=== PATIENT | male | born 1970 | race African-American/Black ===

== ENCOUNTER 2016-12-26 16:33 | Inpatient (IN) | payer BC ==
[~2016-12-26] VITALS: Ht 185.4 cm; Wt 112.0 kg
[2016-12-26] MEDS ORDERED: ONDANSETRON 4 MG INJ IV STA ×2 (16:39→18:19)
[2016-12-26] MEDS ORDERED: SOD CHLORIDE 0.9% 1,000 ML IV STA ×2 (16:39→18:28)
--- NOTE | 2016-12-26 17:13 | RADRPT ---
PROCEDURE: XR Chest. CLINICAL INDICATION: Syncope TECHNIQUE: Single AP view of the chest was obtained. COMPARISON: None FINDINGS: There is mild elevation of the right hemidiaphragm. There is moderate cardiomegaly with prominence of interstitial markings, likely due to congestive ch anges. There is no significant pleural effusion or pneumothorax. Osseous and soft tissue structures are unremarkable. IMPRESSION: Moderate cardiomegaly with prominence of interstitial markings, likely due to mild congestive change s. RPTAT: EE Physician Cat Date Time Electronically viewed and signed by Mark Nieto Physician on 12/26/2016 17:13 /
[2016-12-26] MEDS ORDERED: NITROGLYCERIN 2% 1 GM OINT PKT TD STA (18:19)
[2016-12-26] MEDS ORDERED: ASPIRIN 325 MG TAB PO STA (18:19)
[2016-12-26] MEDS ORDERED: morphine 4 MG/ML VIAL IV STA (18:19)
[2016-12-26] MEDS ORDERED: SOD CHLORIDE 0.9% 100 ML ONE (19:22)
[2016-12-26] MEDS ORDERED: IODIXANOL LOCM 100 ML BTL ONE (19:22)
--- NOTE | 2016-12-26 20:27 | ERD ---
ER Documentation Chief Complaint Chief Complaint FEELING ANXIETY AND PALPITATION AFTER DRINKING ENERGY DRINK . SYNCOPE IN ER HPI This is a 46-year-old male who presents via EMS. The patient states that he felt palpitations and anxiety after drinking an energy drink earlier in the day. However, when he was with EMS at the door he had a syncopal episode. The patient was quickly arousable and had no witnessed seizure activity. He denied any prodrome of chest pain or shortness of breath. He does describe some palpitations. He states that he did take an energy drink earlier today. He denies any drugs or alcohol. ROS All systems reviewed and are negative except as per history of present illness. Medications Home Meds No Active Prescriptions or Reported Meds Allergies Allergies: Coded Allergies: No Known Allergy (Unverified , 12/26/16) PMhx/Soc Medical and Surgical Hx: pt denies Surgical Hx Hx Respiratory Disorders: Yes (asthma) Hx Alcohol Use: No Hx Substance Use: No Hx Tobacco Use: No Smoking Status: Never smoker Physical Exam Vitals Vital Signs Date Time Temp Pulse Resp B/P Pulse Ox O2 Delivery O2 Flow Rate FiO2 12/26/16 19:12 74 19 128/57 99 Nasal Cannula 2.0 12/26/16 17:21 98.5 78 21 135/78 98 Physical Exam General: Anxious but no significant distress Head: Normocephalic, atraumatic. Eyes: Pupils equally reactive, EOM intact ENT: Moist mucous membranes Neck: Supple, no lymphadenopathy Respiratory: Lungs clear bilaterally, no distress Cardiovascular: RRR, no murmurs, rubs, or gallops Abdominal: Soft, non-tender, non-distended, no peritoneal signs : Deferred MSK: No edema, no unilateral swelling, 5/5 strength Neurologic: Alert and oriented, moving all extremities, normal speech, no focal weakness, no cerebellar signs Skin: No rash Psych: Normal mood Result Diagram: 12/26/16 1640 12/26/16 1640 Results 24 hrs Laboratory Tests Test 12/26/16 16:40 White Blood Count 13.410^3/ul Red Blood Count 4.9010^6/ul Hemoglobin 15.3g/dl Hematocrit 43.7% Mean Corpuscular Volume 89.2fl Mean Corpuscular Hemoglobin 31.2pg Mean Corpuscular Hemoglobin Concent 35.0g/dl Red Cell Distribution Width 12.3% Platelet Count 09430^3/UL Mean Platelet Volume 11.5fl Neutrophils % % Segmented Neutrophils % (Manual) 13% Lymphocytes % % Lymphocytes % (Manual) 77% Monocytes % % Monocytes % (Manual) 8% Eosinophils % (Manual) 1% Plasma Cells % (manual) 1% Nucleated Red Blood Cells % 0.0/100WBC Neutrophils # 10^3/ul Absolute Lymphocytes (Manual) 10.310^3/ul Lymphocytes # 10^3/ul Monocytes # 10^3/ul Absolute Monocytes (Manual) 1.010^3/ul Plasma Cells # (manual) 0.110^3/ul Giant Platelets 1% Platelet Morphology Comment @See below Polychromasia 1+ Sodium Level 143mmol/L Potassium Level 3.3mmol/L Chloride Level 108mmol/L Carbon Dioxide Level 23mmol/L Anion Gap 15 Blood Urea Nitrogen 11mg/dl Creatinine 1.30mg/dl Glucose Level 105mg/dl Calcium Level 9.3mg/dl Troponin I < 0.012ng/ml Current Medications Medications (Trade) Dose Ordered Sig/Stacy Route PRN Reason Start Time Stop Time Status Last Admin Dose Admin Sodium Chloride (NS) 1,000 ml @ 1,000 mls/hr Q1H STAT IV 12/26/16 16:39 12/26/16 17:38 DC 12/26/16 17:16 Ondansetron HCl (Zofran Inj) 4 mg ONCE STAT IV 12/26/16 16:39 12/26/16 16:40 DC 12/26/16 17:16 Aspirin (Aspirin) 325 mg ONCE STAT PO 12/26/16 18:19 12/26/16 18:20 DC Nitroglycerin (Nitroglycerin 2% Oint) 1 inch ONCE STAT TD 12/26/16 18:19 12/26/16 18:20 DC 12/26/16 19:00 Morphine Sulfate (morphine) 4 mg ONCE STAT IV 12/26/16 18:19 12/26/16 18:20 DC 12/26/16 18:59 Ondansetron HCl 4 mg 4 mg ONCE STAT IV 12/26/16 18:19 12/26/16 18:20 DC 12/26/16 18:59 Sodium Chloride (NS) 1,000 ml @ 1,000 mls/hr Q1H STAT IV 12/26/16 18:28 12/26/16 19:27 DC 12/26/16 18:56 IV Flush 10 ml 10 ml STK-MED ONCE .ROUTE 12/26/16 19:22 12/26/16 19:23 DC Sodium Chloride (NS) 100 ml @ ud STK-MED ONCE .ROUTE 12/26/16 19:22 12/26/16 19:23 DC Iodixanol (Visipaque Locm) 100 ml STK-MED ONCE .ROUTE 12/26/16 19:22 12/26/16 19:23 DC Procedures/MDM EKG, MONITORS, & DIAGNOSTIC IMAGING: EKG #1 EKG: I reviewed and interpreted a 12-lead EKG. Rhythm: Normal sinus rhythm Ectopy: None Intervals: No abnormalities ST segments: No elevations or depressions T waves: Isolated T-wave inversion in lead III EKG #2 EKG: I reviewed and interpreted a 12-lead EKG. Rhythm: Normal sinus rhythm Ectopy: None Intervals: No abnormalities ST segments: No elevations or depressions T waves: Isolated T-wave inversion in lead III #3 EKG: I reviewed and interpreted a 12-lead EKG. Rhythm: Normal sinus rhythm Ectopy: None Intervals: No abnormalities ST segments: No elevations or depressions T waves: Isolated T-wave inversion in lead III #4 EKG: I reviewed and interpreted a 12-lead EKG. Rhythm: Normal sinus rhythm Ectopy: None Intervals: No abnormalities ST segments: No elevations or depressions T waves: Isolated T-wave inversion in lead III Chest x-ray: I reviewed and interpreted a 1 view of the chest Mediastinum: No enlargement Cardiac silhouette: No cardiomegaly Airspace: Clear lung thomas bilaterally without evidence of pneumothorax Bones: No evidence of fracture CTA chest: IMPRESSION: 1. No thoracic aortic dissection. No aneurysmal dilatation. 2. No major pulmonary emboli. 3. Bibasilar atelectasis. 4. Borderline cardiomegaly. LAB INTERPRETATION: Negative troponin, nonspecific leukocytosis MEDICAL DECISION MAKING: On arrival the patient had a syncopal episode. He had a rapid return to baseline and had no witnessed seizure activity. The patient is a very poor historian and the only thing that he can tell me is that he had an energy drink earlier today. The patient did develop some chest pain throughout his ER course but his repeat EKG was unchanged. It should be noted that the patient's initial EKG was read by the machine as "acute CA ". However, his EKG did not actually meet STEMI criteria. There were no ST segment changes, no reciprocal changes. I had Dr. Garcia, evaluate the EKG and review the EKG and she agrees that this is not consistent with acute ST elevation myocardial infarction. His presentation seem to be consistent with sympathomimetic response likely secondary to caffeine drink. However given his persistence of symptoms and inclusion of chest pain there is some concern for possible cardiac etiology and the fact that the energy drink may be a red lay ER COURSE: Because the patient did have an episode of syncope I believe a CT of the chest to rule out dissection would be appropriate. He did not describe any pleuritic pain and has no risk factors for pulmonary embolism. Therefore, low clinical concern for PE. The patient does seem very anxious which is contributing to his symptoms. Aspirin was held until negative CT, the patient was given nitroglycerin and morphine with complete resolution of symptoms. Because of the patient's complex presentation as well as persistent symptoms I believe inpatient hospitalization to rule out ACS is most appropriate. I kept the patient and/or family informed of laboratory and diagnostic imaging results throughout the emergency room course. DISPOSITION PLAN: Telemetry admission for management of chest pain to rule out acute coronary syndrome, serial enzymes, risk stratification and consideration of provocative testing CONSULTATION: Accepting care team and consultations: I discussed the current laboratory data, diagnostic imaging and emergency care provided. Admitting team: Dr. hatch Admitting team indication: Insurance directed Departure Diagnosis: Primary Impression: Acute renal insufficiency Additional Impression: Chest pain Chest pain type: unspecified Qualified Code: R07.9 - Chest pain, unspecified type Condition: EMILY Nowak MD Dec 26, 2016 20:27
--- NOTE | 2016-12-26 20:50 | RADRPT ---
PROCEDURE: CT Thoracic Angiogram. CLINICAL INDICATION: Chest pain. Evaluate for aortic dissection. TECHNIQUE: CT thoracic aortic angiogram and a CT scan of the chest without and with contrast was p erformed on a multi-detector high-resolution CT scanner. The patient was scanned following the unco mplicated intravenous administration of 100 cc of Visipaque 320 intravenous contrast. 2-D coronal r eformatted images and 3-D MIP images were obtained from the axial source images. The total exam CTDI equals 7.42, and 19.97 and the total exam DLP equals 760.59 mGy-cm. One or more of the following dose reduction techniques were used: Automated exposure control. Adjustment of the mA and/or kV according to patient size. Use of iterative reconstruction technique. COMPARISON: None available FINDINGS: CT thoracic aortic angiogram: The thoracic aorta is well visualized and is normal. No aortic aneurysm is seen. No aortic dissect ion, transection, aneurysm, pseudoaneurysm, or intramural hematoma is identified. No abnormality of the aortic root is identified. CT chest: Posterior dependent atelectasis is noted in bilateral lung bases. No focal opacification, effusion, pneumothorax, edema, or nodules are seen. Minimal scarring only is seen in the lung bases bilateral ly. There is no acute infiltrate. The mediastinum is unremarkable without evidence for mass or lym phadenopathy. The vascular structures of the mediastinum are normal in course and caliber. The hear t size is borderline enlarged without evidence for pericardial thickening or effusion. The axillary regions, subpectoral regions, and supraclavicular regions are all unremarkable. Imagin g obtained through the upper abdomen reveals no acute abnormality. There is fatty infiltration. The surrounding osseous structures unremarkable. No osteolytic or osteoblastic lesion is detected.. IMPRESSION: 1. No thoracic aortic dissection. No aneurysmal dilatation. 2. No major pulmonary emboli. 3. Bibasilar atelectasis. 4. Borderline cardiomegaly. RPTAT: HHO .Todd Ricardo MD, Date Time Electronically viewed and signed by .Todd Ricardo MD, on 12/26/2016 20:49 .O/
[2016-12-26] MEDS ORDERED: ONDANSETRON 4 MG INJ IV PRN (21:00)
[2016-12-26] MEDS ORDERED: ACETAMINOPHEN 325 MG TAB PO PRN (21:00)
[2016-12-27] MEDS ORDERED: NITROGLYCERIN (SL) 0.4 MG TAB SL PRN
[2016-12-27] MEDS ORDERED: ACETAMINOPHEN 325 MG TAB PO PRN
[2016-12-27] MEDS ORDERED: LORAZEPAM 0.5 MG TAB PO PRN
[2016-12-27] MEDS ORDERED: morphine 2 MG INJ IV PRN
[2016-12-27] MEDS ORDERED: ONDANSETRON 4 MG INJ IV PRN
[2016-12-27] MEDS ORDERED: NACL 0.9% 3 ML SYG IV SCH
[2016-12-27] MEDS: SOD CHLORIDE 0.9% 1,000 ML IV SCH ×5 (00:35→17:02)
[2016-12-27] MEDS: ASPIRIN 81 MG TAB PO SCH (08:25)
[2016-12-27] MEDS: HEPARIN 5,000 UNIT/0.5 ML VIAL SC SCH ×2 (08:29→20:25)
--- NOTE | 2016-12-27 11:32 | PN ---
Date/Time of Note Date/Time of Note DATE: 12/27/16 TIME: 11:31 Assessment/Plan VTE Prophylaxis VTE Prophylaxis Intervention: ambulation Assessment/Plan Chief Complaint/Hosp Course Patient is a 46-year-old male who presents to [facility] emergency department for palpitations. Assessment and plan Palpitations, secondary to caffeine plus energy drink plus allergy medication likely containing pseudoephedrine Elevated CK, likely secondary to palpitations Leukocytosis, mild, resolving HPI, resolved Hypokalemia, resolved -Patient likely had too many stimulants, leading to arrhythmia, patient vitals within normal limits at this time, mild bradycardia however asymptomatic -We will increase IV fluids, and monitor CK level for tomorrow, given possible renal damage, -We will consider cardiac consultation if arrhythmia continues -Monitor for now, DC tomorrow if stable Problems: Subjective 24 Hr Interval Summary Free Text/Dictation no acute issues, feels okay, better than before Exam/Review of Systems Vital Signs Vitals Vital Signs Date Time Temp Pulse Resp B/P Pulse Ox O2 Delivery O2 Flow Rate FiO2 12/27/16 06:30 59 18 117/76 98 Room Air 12/27/16 04:30 2.0 12/26/16 17:21 98.5 Exam Physical exam General: Patient is laying in bed and answers questions appropriately Mentation: Patient is alert and oriented 4, Head: Normocephalic atraumatic Eyes: EOMI, pupils reactive to light Neck: Supple, nontender, midline Respiratory: Clear to auscultation bilaterally Cardiovascular: regular rate, no obvious murmurs Gastrointestinal: non-tender to palpation, bowel sounds heard. Neurological: Moves all extremities spontaneously Skin: No new skin lesions Results Result Diagram: 12/27/1630 12/27/1630 Results 24 hrs Laboratory Tests Test 12/26/16 16:40 12/27/16 00:16 12/27/16 03:05 12/27/16 05:30 White Blood Count 13.4 H 11.1 H Red Blood Count 4.90 4.19 L Hemoglobin 15.3 13.1 L Hematocrit 43.7 37.9 L Mean Corpuscular Volume 89.2 90.5 Mean Corpuscular Hemoglobin 31.2 31.3 Mean Corpuscular Hemoglobin Concent 35.0 34.6 Red Cell Distribution Width 12.3 12.5 Platelet Count 178 150 Mean Platelet Volume 11.5 H 11.5 H Neutrophils % 64.3 Segmented Neutrophils % (Manual) 13 L Lymphocytes % 25.6 Lymphocytes % (Manual) 77 H Monocytes % 9.0 Monocytes % (Manual) 8 Eosinophils % (Manual) 1 Plasma Cells % (manual) 1 Nucleated Red Blood Cells % 0.0 0.0 Neutrophils # 7.1 Absolute Lymphocytes (Manual) 10.3 H Lymphocytes # 2.8 Monocytes # 1.0 H Absolute Monocytes (Manual) 1.0 H Plasma Cells # (manual) 0.1 H Giant Platelets 1 H Platelet Morphology Comment @See below Polychromasia 1+ Sodium Level 143 142 Potassium Level 3.3 L 4.2 Chloride Level 108 108 Carbon Dioxide Level 23 28 Anion Gap 15 10 # Blood Urea Nitrogen 11 12 Creatinine 1.30 H 1.18 Glucose Level 105 96 Calcium Level 9.3 9.1 Troponin I < 0.012 < 0.012 < 0.012 Creatine Kinase 506 H 553 H Creatine Kinase Index 0.5 0.4 Creatinine Kinase MB (Mass) 2.50 H 2.34 Urine Opiates Screen Positive Urine Barbiturates Negative Urine Amphetamines Screen Negative Urine Benzodiazepines Screen Negative Urine Cocaine Screen Negative Urine Cannabinoids Positive Eosinophils % 0.6 Basophils % 0.2 Eosinophils # 0.1 Basophils # 0.0 Nucleated Red Blood Cells # 0.0 Hemoglobin A1c 5.7 Magnesium Level 2.0 Total Bilirubin 0.6 Direct Bilirubin 0.00 Indirect Bilirubin 0.6 Aspartate Amino Transf (AST/SGOT) 37 Alanine Aminotransferase (ALT/SGPT) 66 Alkaline Phosphatase 46 Total Protein 6.8 Albumin 3.4 Globulin 3.40 H Albumin/Globulin Ratio 1.00 Triglycerides Level 85 Cholesterol Level 173 LDL Cholesterol, Calculated 118 HDL Cholesterol 38 Cholesterol/HDL Ratio 4.5 Thyroid Stimulating Hormone (TSH) 0.682 Medications Medications Current Medications Sodium Chloride (NS) 1,000 ml @ 100 mls/hr Q10H IV Last administered on t 08:57; Admin Dose 100 MLS/HR; Start 12/26/16 at 23:37; Stop 12/27/16 at 22:00 Lorazepam (Ativan) 0.5 mg Q8H PRN PO ANXIETY; Start 12/27/16 at 00:00 Ondansetron HCl (Zofran Inj) 4 mg Q6H PRN IV NAUSEA AND/OR VOMITING; Start at 00:00 Aspirin (Aspirin) 81 mg DAILY PO Last administered on 12/27/16 08:25; Admin Dose 81 MG; Start 12/27/16 at 09:00 Nitroglycerin (Nitroglycerin (Sl Tab) 0.4 Mg) 1 tab Q5M PRN SL CHEST PAIN; Start 12/27/16 at 00:00 Acetaminophen (Tylenol Tab) 650 mg Q6H PRN PO PAIN LEVEL 1-3 OR FEVER; Start 12/27/16 at 00:00 Morphine Sulfate (morphine) 2 mg Q4H PRN IV PAIN LEVEL 7-10 Last administered on 12/27/16 03:52; Admin Dose 2 MG; Start 12/27/16 at 00:00 Heparin Sodium (Porcine) 5000 unit 5,000 unit Q12 SC Last administered on 12/27 08:29; Admin Dose 5,000 UNIT; Start 12/27/16 at 09:00 Sodium Chloride (NS) 1,000 ml @ 150 mls/hr Q6H40M IV ; Start 12/27/16 at 10:00 DESI NIELSEN Dec 27, 2016 11:32
[2016-12-27 12:13] VITALS: PULSE 65
--- NOTE | 2016-12-27 12:36 | HP ---
Date/Time of Note Date/Time of Note DATE: 12/27/16 TIME: 12:23 Assessment/Plan Assessment/Plan Assessment/Plan 1. Anxiety and palpitations, 2/2 energy drink, coffee, allergy med - monitor in tele unit 2. Chest pain -trend trop -2D-echo -supplemental oxygen, aspirin, as needed nitro and morphine -lasix given CXR finding 3. Leukocytosis, reactive vs URI given symptom -respiratory culture -check Influenza -no Abx for now 4. SAVANNA: resolved HPI/ROS Admit Date/Time Admit Date/Time Hx of Present Illness This is a 46-year-old male with hx of asthma who presented to ER c/o anxiety and palpitations. He said he had his usual coffee, then an allergy med this morning for nasal congestion. Few hours later, he drank an energy drink for first time. An hour or so later, he became anxious and his heart was beating fast. Per EMS, pt has a brief syncopal episode when they arrived at his house. Patient denied simialr symptoms in the past. Once in ER, he c/o non-radiating left sided chest pain described as sharp. On further questioning, he reported cough productive of greenish sputum for last few days associated with nasal congestion. denied fever or chills. CXR showed Moderate cardiomegaly with prominence of interstitial markings, likely due to mild congestive changes. CTPA with no acute findings. EKG with no ST-T wave abnormalities and first trop is neg. Lab showed WBC of 13,000, K+ 3.3. PMH/Family/Social Social History Smoking Status: Never smoker Exam/Review of Systems Vital Signs Vitals Vital Signs Date Time Temp Pulse Resp B/P Pulse Ox O2 Delivery O2 Flow Rate FiO2 12/27/16 12:13 65 13 105/55 97 Nasal Cannula 2.0 12/26/16 17:21 98.5 Labs Result Diagram: 12/27/16 0530 12/27/16 0530 Medications Medications Current Medications Sodium Chloride (NS) 1,000 ml @ 100 mls/hr Q10H IV Last administered on t 08:57; Admin Dose 100 MLS/HR; Start 12/26/16 at 23:37; Stop 12/27/16 at 22:00 Lorazepam (Ativan) 0.5 mg Q8H PRN PO ANXIETY; Start 12/27/16 at 00:00 Ondansetron HCl (Zofran Inj) 4 mg Q6H PRN IV NAUSEA AND/OR VOMITING; Start at 00:00 Aspirin (Aspirin) 81 mg DAILY PO Last administered on 12/27/16 08:25; Admin Dose 81 MG; Start 12/27/16 at 09:00 Nitroglycerin (Nitroglycerin (Sl Tab) 0.4 Mg) 1 tab Q5M PRN SL CHEST PAIN; Start 12/27/16 at 00:00 Acetaminophen (Tylenol Tab) 650 mg Q6H PRN PO PAIN LEVEL 1-3 OR FEVER; Start 12/27/16 at 00:00 Morphine Sulfate (morphine) 2 mg Q4H PRN IV PAIN LEVEL 7-10 Last administered on 12/27/16 03:52; Admin Dose 2 MG; Start 12/27/16 at 00:00 Heparin Sodium (Porcine) 5000 unit 5,000 unit Q12 SC Last administered on 12/27 08:29; Admin Dose 5,000 UNIT; Start 12/27/16 at 09:00 Sodium Chloride (NS) 1,000 ml @ 150 mls/hr Q6H40M IV Last administered on 10:00; Admin Dose 150 MLS/HR; Start 12/27/16 at 10:00 BRETT REAGAN MD Dec 27, 2016 12:35
[2016-12-27 13:32] VITALS: Ht 185.4 cm; Wt 112.0 kg
[2016-12-27] MEDS ORDERED: ALBU8.5H3 INH (14:56)
[2016-12-27] MEDS ORDERED: LEVO2.5S7 PO (14:57)
[2016-12-27] MEDS ORDERED: AZEL205. NASAL (15:01)
[2016-12-27 15:11] VITALS: BP 131/70; RESP 18
[2016-12-27 20:03] VITALS: BP 127/59; RESP 18
[2016-12-27] MEDS: ALBUTEROL/IPRATROPIUM (NEB) 3 ML AMP HHN PRN (20:13)
[2016-12-28] MEDS: SOD CHLORIDE 0.9% 1,000 ML IV SCH ×4 (00:07→14:42)
[2016-12-28 01:57] VITALS: BP 126/76; RESP 20
[2016-12-28] MEDS: ALBUTEROL/IPRATROPIUM (NEB) 3 ML AMP HHN PRN (05:32)
[2016-12-28 07:38] VITALS: BP 134/78; RESP 20
[2016-12-28] MEDS: ASPIRIN 81 MG TAB PO SCH (09:31)
[2016-12-28] MEDS: HEPARIN 5,000 UNIT/0.5 ML VIAL SC SCH (09:32)
--- NOTE | 2016-12-28 11:54 | PN ---
Date/Time of Note Date/Time of Note DATE: 12/28/16 TIME: 11:43 Assessment/Plan VTE Prophylaxis VTE Prophylaxis Intervention: SCD's Lines/Catheters IV Catheter Type (from Nrs): Peripheral IV Urinary Cath still in place: No Assessment/Plan Assessment/Plan 1. Palpitations, secondary to caffeine plus energy drink plus allergy medication likely containing pseudoephedrine - Improved and no longer experiencing palpitations - HR controlled - No further episodes of chest pain 2. Elevated CK, likely secondary to palpitations - Still elevated - Continue on IV fluids and monitor CK 3. Leukocytosis, mild, resolved 4. Nasal congestion - Will start on saline rinse 5. Disposition - CK still elevated. Repeat tmrw and if improving, d/c in am Subjective 24 Hr Interval Summary Free Text/Dictation Patient states no longer experiencing palpitations but still has nasal and chest congestion. Denies any fevers, chills, nausea, vomiting, chest pain, or shortness of breath. No acute overnight events. Exam/Review of Systems Vital Signs Vitals Vital Signs Date Time Temp Pulse Resp B/P Pulse Ox O2 Delivery O2 Flow Rate FiO2 12/28/16 07:38 98.3 82 20 134/78 93 12/28/16 05:32 21 12/27/16 12:13 Nasal Cannula 2.0 Intake and Output 12/27/16 12/27/16 12/28/16 15:00 23:00 07:00 Intake Total 1580 ml 2400 ml Balance 1580 ml 2400 ml Exam General: Patient is laying in bed and answers questions appropriately. NAD Mentation: Patient is alert and oriented 4, Head: Normocephalic atraumatic Eyes: EOMI, pupils reactive to light Neck: Supple, nontender, midline Respiratory: Clear to auscultation bilaterally Cardiovascular: regular rate, no obvious murmurs Gastrointestinal: non-tender to palpation, bowel sounds heard. Neurological: Moves all extremities spontaneously Results Result Diagram: 12/28/16 0446 12/28/16445 Results 24 hrs Laboratory Tests Test 12/28/16 04:46 White Blood Count 6.3 # Red Blood Count 4.51 L Hemoglobin 14.1 Hematocrit 41.6 L Mean Corpuscular Volume 92.2 Mean Corpuscular Hemoglobin 31.3 Mean Corpuscular Hemoglobin Concent 33.9 Red Cell Distribution Width 12.5 Platelet Count 152 Mean Platelet Volume 12.1 H Neutrophils % 41.6 Lymphocytes % 42.7 Monocytes % 10.4 Eosinophils % 4.5 Basophils % 0.6 Nucleated Red Blood Cells % 0.0 Neutrophils # 2.6 Lymphocytes # 2.7 Monocytes # 0.7 Eosinophils # 0.3 Basophils # 0.0 Nucleated Red Blood Cells # 0.0 Sodium Level 146 H Potassium Level 4.1 Chloride Level 108 Carbon Dioxide Level 29 Anion Gap 13 Blood Urea Nitrogen 9 Creatinine 1.16 Glucose Level 97 Calcium Level 8.9 Phosphorus Level 3.8 Magnesium Level 2.0 Creatine Kinase 575 H Medications Medications Current Medications Lorazepam (Ativan) 0.5 mg Q8H PRN PO ANXIETY; Start 12/27/16 at 00:00 Ondansetron HCl (Zofran Inj) 4 mg Q6H PRN IV NAUSEA AND/OR VOMITING; Start at 00:00 Aspirin (Aspirin) 81 mg DAILY PO Last administered on 12/28/16 09:31; Admin Dose 81 MG; Start 12/27/16 at 09:00 Nitroglycerin (Nitroglycerin (Sl Tab) 0.4 Mg) 1 tab Q5M PRN SL CHEST PAIN; Start 12/27/16 at 00:00 Acetaminophen (Tylenol Tab) 650 mg Q6H PRN PO PAIN LEVEL 1-3 OR FEVER; Start 12/27/16 at 00:00 Morphine Sulfate (morphine) 2 mg Q4H PRN IV PAIN LEVEL 7-10 Last administered on 12/27/16 03:52; Admin Dose 2 MG; Start 12/27/16 at 00:00 Heparin Sodium (Porcine) 5000 unit 5,000 unit Q12 SC Last administered on 12/28 09:32; Admin Dose 5,000 UNIT; Start 12/27/16 at 09:00 Sodium Chloride (NS) 1,000 ml @ 150 mls/hr Q6H40M IV Last administered on 07:43; Admin Dose 150 MLS/HR; Start 12/27/16 at 10:00 Sodium Chloride (Deep Sea) 2 spray BID NASAL ; Start 12/28/16 at 12:00; Status CHRIS WARREN MD Dec 28, 2016 11:54
--- NOTE | 2016-12-28 12:40 | PDOCDIS ---
Discharge Instructions DIAGNOSIS Discharge Diagnosis 1. Palpitations, secondary to caffeine from energy drink plus allergy medication likely containing pseudoephedrine- resolved 2. Elevated CK, likely secondary to palpitations 3. Leukocytosis, mild, resolved 4. Nasal congestion CONDITION Patient Condition: Good HOME CARE INSTRUCTIONS: Diet Instructions: RegularSpecial Diet: regular ACTIVITY: Activity Restrictions: No Restrictions FOLLOW UP/APPOINTMENTS Follow-up Plan 1. Avoid energy drinks due to intolerance 2. Keep well hydrated 3. Follow up with Primary care physician in 1 week 4. If symptoms return, return to the ED 5. If you take decongestant, avoid caffeinated beverages SCHOOL/WORK RELEASE May return to School/Work on: Dec 29, 2016 May return to School/Work with: No Restrictions CHRIS COBB MD Dec 28, 2016 12:40
--- NOTE | 2016-12-28 12:40 | DS ---
Date/Time of Note Date/Time of Note DATE: 12/28/16 TIME: 12:40 Discharge Summary Admission/Discharge Info Admit Date/Time Dec 26, 2016 at 20:55 Discharge Date/Time Discharge Diagnosis 1. Palpitations, secondary to caffeine from energy drink plus allergy medication likely containing pseudoephedrine- resolved 2. Elevated CK, likely secondary to palpitations 3. Leukocytosis, mild, resolved 4. Nasal congestion Hx of Present Illness This is a 46-year-old male with hx of asthma who presented to ER c/o anxiety and palpitations. He said he had his usual coffee, then an allergy med this morning for nasal congestion. Few hours later, he drank an energy drink for first time. An hour or so later, he became anxious and his heart was beating fast. Per EMS, pt has a brief syncopal episode when they arrived at his house. Patient denied simialr symptoms in the past. Once in ER, he c/o non-radiating left sided chest pain described as sharp. On further questioning, he reported cough productive of greenish sputum for last few days associated with nasal congestion. denied fever or chills. CXR showed Moderate cardiomegaly with prominence of interstitial markings, likely due to mild congestive changes. CTPA with no acute findings. EKG with no ST-T wave abnormalities and first trop is neg. Lab showed WBC of 13,000, K+ 3.3. Hospital Course Patient is a 46-year-old male who presents to [facility] emergency department for palpitations. Assessment and plan Palpitations, secondary to caffeine plus energy drink plus allergy medication likely containing pseudoephedrine Elevated CK, likely secondary to palpitations Leukocytosis, mild, resolving HPI, resolved Hypokalemia, resolved -Patient likely had too many stimulants, leading to arrhythmia, patient vitals within normal limits at this time, mild bradycardia however asymptomatic -We will increase IV fluids, and monitor CK level for tomorrow, given possible renal damage, -We will consider cardiac consultation if arrhythmia continues -Monitor for now, DC tomorrow if stable Home Meds Reported Medications Azelastine Hcl (Astepro) 205.5 Mcg/0.137 Ml [place].pump, 1-2 SPRAY NASAL BID, #1 BOTTLE 12/27/16 Levocetirizine Dihydrochloride (Xyzal) 2.5 Mg/5 Ml Solution, 2.5 MG PO BID, ML 12/27/16 Albuterol Sulfate* (Proair HFA*) 8.5 Gm Hfa.aer.ad, 2 PUFF INH Q4 Y for WHEEZING , INHALER 12/27/16 Follow-up Plan 1. Avoid energy drinks due to intolerance 2. Keep well hydrated 3. Follow up with Primary care physician in 1 week 4. If symptoms return, return to the ED 5. If you take decongestant, avoid caffeinated beverages Primary Care Provider Care Physician No Primary Pending Labs Laboratory Tests Test 12/28/16 04:46 White Blood Count 6.310^3/ul (4.8-10.8) Red Blood Count 4.5110^6/ul (4.70-6.10) Hemoglobin 14.1g/dl (14.0-18.0) Hematocrit 41.6% (42.0-52.0) Mean Corpuscular Volume 92.2fl (82.0-101.0) Mean Corpuscular Hemoglobin 31.3pg (29.0-33.0) Mean Corpuscular Hemoglobin Concent 33.9g/dl (32.0-37.0) Red Cell Distribution Width 12.5% (11.5-14.5) Platelet Count 47070^3/UL (140-415) Mean Platelet Volume 12.1fl (7.4-10.4) Neutrophils % 41.6% (39.0-77.0) Lymphocytes % 42.7% (15.0-51.0) Monocytes % 10.4% (0.0-11.0) Eosinophils % 4.5% (0.0-7.0) Basophils % 0.6% (0.0-2.0) Nucleated Red Blood Cells % 0.0/100WBC (0.0-0.0) Neutrophils # 2.610^3/ul (1.6-7.5) Lymphocytes # 2.710^3/ul (0.8-2.9) Monocytes # 0.710^3/ul (0.3-0.9) Eosinophils # 0.310^3/ul (0.0-0.5) Basophils # 0.010^3/ul (0.0-0.1) Nucleated Red Blood Cells # 0.010^3/ul (0.0-0.0) Sodium Level 146mmol/L (135-144) Potassium Level 4.1mmol/L (3.5-5.1) Chloride Level 108mmol/L (97-110) Carbon Dioxide Level 29mmol/L (21-31) Anion Gap 13 (8-16) Blood Urea Nitrogen 9mg/dl (7-20) Creatinine 1.16mg/dl (0.61-1.24) Glucose Level 97mg/dl (70-220) Calcium Level 8.9mg/dl (8.4-10.2) Phosphorus Level 3.8mg/dl (2.5-4.9) Magnesium Level 2.0mg/dl (1.7-2.5) Creatine Kinase 575IU/L (23-200) Microbiology Date/Time Source Procedure Growth Status 12/27/16 13:00 Nasopharyngeal Influenza Types A,B Direct EIA - Final Complete 12/27/16 12:50 Sputum Gram Stain Pending Resulted 12/27/16 12:50 Respiratory Culture - Preliminary Normal Respiratory Kiya Resulted CHRIS COBB MD Dec 28, 2016 12:40
[2016-12-28] MEDS ORDERED: SALINE 0.65% 45 ML NAS SPRAY NASAL SCH ×2 (13:00→14:17)
[2016-12-28 14:35] VITALS: BP 138/82; RESP 20
--- NOTE | 2016-12-29 14:15 | RADRPT ---
Echocardiogram Report Patient Name: RATNA MEDINA Gender: Male Date: 1970 Study Date: 28-Dec-2016 Consulting Sales Executive: Felix [facility] Location: 2250 Ref. Physician: BRETT REAGAN Quality: Adequate Procedures: Transthoracic echocardiogram with complete 2D, M-Mode, and doppler examination. Indications: Syncope. 2D/M Mode Doppler Measurement Value Normal Ranges Measurement Value Normal Ranges LVIDd 2D 5.1 3.5 - 5.6 cm AV Peak Anton 1.5 m/sec LVIDs 2D 3.2 2.1 - 4.1 cm AV Peak PG 9.0 mmHg FS 2D 37.4 % LVOT Peak Anton 1.1 m/sec LVPWd 2D 1.3 0.6 - 1.1 cm LVOT Peak PG 5.0 mmHg IVSd 2D 1.3 0.6 - 1.1 cm MV E Peak Anton 1.3 m/sec IVS/LVPW 2D 1.0 MV A Peak Anton 0.7 m/sec AoR Diam 2D 3.1 2.0 - 3.7 cm MV E/A 1.9 LA/Ao 2D 1 0 - 1 MV Decel Time 180 msec EDV 2D 136.0 cm3 MV E/A 1.9 ESV 2D 33.4 cm3 TR Peak Anton 2.5 m/sec LA Dimen 2D 3.5 2.3 - 4.0 cm TR Peak PG 24.0 mmHg RVSP 27.0 mmHg Findings Left Ventricle: Normal left ventricular systolic function. Normal left ventricular cavity size. Mild concentric left ventricular hypertrophy. Ejection fraction is visually estimated at 6065 %. Right Ventricle: Normal right ventricular size. Normal right ventricular systolic function. Left Atrium: The left atrium is normal in size. Right Atrium: The right atrium is normal in size. Mitral Valve: Mild mitral leaflet calcification. Mild mitral annular calcification. Trace mitral regurgitation. Aortic Valve: No significant aortic stenosis. Aortic cusps appear mildly calcified. Trace aortic valve regurgitation. Tricuspid Valve: Normal appearance of the tricuspid valve. Estimated peak PA systolic pressure 27 mmHg. There is mild tricuspid regurgitation. Pulmonic Valve: Normal pulmonic valve appearance. There is mild pulmonic regurgitation. Pericardium: Normal pericardium with no significant pericardial effusion. Aorta: Normal aortic root. IVC: Normal size and normal respiratory collapse consistent with normal right atrial pressure. Conclusions 1.The left ventricle is normal in size and systolic function. 2.Estimated left ventricular ejection fraction of 60-65%. 3.Mild concentric left ventricular hypertrophy. Electronically Signed By: Chino Morelos 29-Dec-2016 14:14:27 -0700 Patient Name: RATNA MEDINA Study Date: 28-Dec-2016 [id number]
--- NOTE | 2016-12-29 14:15 | RADRPT ---
Echocardiogram Report Patient Name: RATNA MEDINA Gender: Male Date: 1970 Study Date: 28-Dec-2016 Supervisor Spinning: Felix [facility] Location: 2250 Ref. Physician: BRETT REAGAN Quality: Adequate Procedures: Transthoracic echocardiogram with complete 2D, M-Mode, and doppler examination. Indications: Syncope. 2D/M Mode Doppler Measurement Value Normal Ranges Measurement Value Normal Ranges LVIDd 2D 5.1 3.5 - 5.6 cm AV Peak Anton 1.5 m/sec LVIDs 2D 3.2 2.1 - 4.1 cm AV Peak PG 9.0 mmHg FS 2D 37.4 % LVOT Peak Anton 1.1 m/sec LVPWd 2D 1.3 0.6 - 1.1 cm LVOT Peak PG 5.0 mmHg IVSd 2D 1.3 0.6 - 1.1 cm MV E Peak Anton 1.3 m/sec IVS/LVPW 2D 1.0 MV A Peak Anton 0.7 m/sec AoR Diam 2D 3.1 2.0 - 3.7 cm MV E/A 1.9 LA/Ao 2D 1 0 - 1 MV Decel Time 180 msec EDV 2D 136.0 cm3 MV E/A 1.9 ESV 2D 33.4 cm3 TR Peak Anton 2.5 m/sec LA Dimen 2D 3.5 2.3 - 4.0 cm TR Peak PG 24.0 mmHg RVSP 27.0 mmHg Findings Left Ventricle: Normal left ventricular systolic function. Normal left ventricular cavity size. Mild concentric left ventricular hypertrophy. Ejection fraction is visually estimated at 6065 %. Right Ventricle: Normal right ventricular size. Normal right ventricular systolic function. Left Atrium: The left atrium is normal in size. Right Atrium: The right atrium is normal in size. Mitral Valve: Mild mitral leaflet calcification. Mild mitral annular calcification. Trace mitral regurgitation. Aortic Valve: No significant aortic stenosis. Aortic cusps appear mildly calcified. Trace aortic valve regurgitation. Tricuspid Valve: Normal appearance of the tricuspid valve. Estimated peak PA systolic pressure 27 mmHg. There is mild tricuspid regurgitation. Pulmonic Valve: Normal pulmonic valve appearance. There is mild pulmonic regurgitation. Pericardium: Normal pericardium with no significant pericardial effusion. Aorta: Normal aortic root. IVC: Normal size and normal respiratory collapse consistent with normal right atrial pressure. Conclusions 1.The left ventricle is normal in size and systolic function. 2.Estimated left ventricular ejection fraction of 60-65%. 3.Mild concentric left ventricular hypertrophy. Electronically Signed By: Chino Morelos 29-Dec-2016 14:14:27 -0700 Patient Name: RATNA MEDINA Study Date: 28-Dec-2016 [id number]
--- NOTE | 2016-12-29 14:15 | RADRPT ---
Echocardiogram Report Patient Name: RATNA MEDINA Gender: Male Date: 1970 Study Date: 28-Dec-2016 Heavy Equipment Diesel Mechanic: Felix [facility] Location: 2250 Ref. Physician: BRETT REAGAN Quality: Adequate Procedures: Transthoracic echocardiogram with complete 2D, M-Mode, and doppler examination. Indications: Syncope. 2D/M Mode Doppler Measurement Value Normal Ranges Measurement Value Normal Ranges LVIDd 2D 5.1 3.5 - 5.6 cm AV Peak Anton 1.5 m/sec LVIDs 2D 3.2 2.1 - 4.1 cm AV Peak PG 9.0 mmHg FS 2D 37.4 % LVOT Peak Anton 1.1 m/sec LVPWd 2D 1.3 0.6 - 1.1 cm LVOT Peak PG 5.0 mmHg IVSd 2D 1.3 0.6 - 1.1 cm MV E Peak Anton 1.3 m/sec IVS/LVPW 2D 1.0 MV A Peak Anton 0.7 m/sec AoR Diam 2D 3.1 2.0 - 3.7 cm MV E/A 1.9 LA/Ao 2D 1 0 - 1 MV Decel Time 180 msec EDV 2D 136.0 cm3 MV E/A 1.9 ESV 2D 33.4 cm3 TR Peak Anton 2.5 m/sec LA Dimen 2D 3.5 2.3 - 4.0 cm TR Peak PG 24.0 mmHg RVSP 27.0 mmHg Findings Left Ventricle: Normal left ventricular systolic function. Normal left ventricular cavity size. Mild concentric left ventricular hypertrophy. Ejection fraction is visually estimated at 6065 %. Right Ventricle: Normal right ventricular size. Normal right ventricular systolic function. Left Atrium: The left atrium is normal in size. Right Atrium: The right atrium is normal in size. Mitral Valve: Mild mitral leaflet calcification. Mild mitral annular calcification. Trace mitral regurgitation. Aortic Valve: No significant aortic stenosis. Aortic cusps appear mildly calcified. Trace aortic valve regurgitation. Tricuspid Valve: Normal appearance of the tricuspid valve. Estimated peak PA systolic pressure 27 mmHg. There is mild tricuspid regurgitation. Pulmonic Valve: Normal pulmonic valve appearance. There is mild pulmonic regurgitation. Pericardium: Normal pericardium with no significant pericardial effusion. Aorta: Normal aortic root. IVC: Normal size and normal respiratory collapse consistent with normal right atrial pressure. Conclusions 1.The left ventricle is normal in size and systolic function. 2.Estimated left ventricular ejection fraction of 60-65%. 3.Mild concentric left ventricular hypertrophy. Electronically Signed By: Chino Morelos 29-Dec-2016 14:14:27 -0700 Patient Name: RATNA MEDINA Study Date: 28-Dec-2016 [id number]
== END 2016-12-28 17:15 | disposition home or self-care (01) | DRG 309 ==
LOC: E/R 16:33 → PP2 20:55
PROVIDERS: ADMIT Internal Medicine; ATTEND Internal Medicine
DX: R00.2 Palpitations (principal); N17.9 Acute kidney failure, unspecified; R00.0 Tachycardia, unspecified; T43.615A Adverse effect of caffeine, initial encounter; Y92.9 Unspecified place or not applicable; R07.9 Chest pain, unspecified; R09.81 Nasal congestion; F41.9 Anxiety disorder, unspecified; T44.995A Adverse effect of other drug primarily affecting the autonomic nervous system, initial encounter
CPT/HCPCS: 36415; 71010; 71275; 80048; 80053; 80061; 80307; 82550; 82553; 83036; 83735; 84100; 84443; 84484; 85025; 87070; 87400; 93005; 93306; 94640; 94664; 96361; 96374; 96375; 96376; J1644; J2270; J2405; J7030; Q9967